=== PATIENT | male | born 2000 | race Caucasian/White ===

== ENCOUNTER 2022-07-04 17:36 | Emergency (ER) | payer MEDICAID ==
--- NOTE | 2022-07-04 19:05 | NUR ---
PATIENT CALL TO TRIAGE, NO RESPONSE. PATIENT LEFT WITHOUT BEING SEEN BY DR. MADRID. NO FURTHER CARE PROVIDED FOR PATIENT.
--- NOTE | 2022-07-04 19:15 | NUR ---
CALLED FOR THE SECOND TIME, NO RESPONSE.
--- NOTE | 2022-07-04 19:20 | NUR ---
CALLED FOR THE THIRD TIME, NO RESPONSE
== END 2022-07-04 19:05 | disposition left against medical advice (07) ==
LOC: MED 17:36
DX: R07.0 Pain in throat (principal); Z53.21 Procedure and treatment not carried out due to patient leaving prior to being seen by health care provider